=== PATIENT | female | born 1960 | race Caucasian/White ===

== ENCOUNTER 2017-01-28 12:04 | Emergency (ER) | payer MEDICAID ==
[2017-01-28] MEDS ORDERED: TYLENOL ONE (13:15)
[2017-01-28] MEDS ORDERED: TYLENOL PO ONE (13:16)
[2017-01-28] MEDS ORDERED: MOTRIN PO ONE (14:36)
[2017-01-28] MEDS ORDERED: DUONEB 0.5 MG-3 MG/3 ML SOLN IH ONE (14:37)
[2017-01-28] MEDS ORDERED: NACL ONE (16:42)
[2017-01-28 17:20] VITALS: BP 98/63
--- NOTE | 2017-01-28 17:44 | Cat Scan Report ---
FINAL REPORT EXAM: CT ANGIO CHEST HISTORY: pleuritic chest pain, PE protocol TECHNIQUE: CTA of the chest was performed after the administration of intravenous contrast. Rotating MIP reconstructions were included. 100 cc of Omnipaque 350 intravenous contrast were given. Reconstructions were included in the coronal and sagittal planes. PRIORS: None. FINDINGS: Pulmonary arteries and thoracic aorta: The study is adequate for diagnostic purposes. No central or segmental pulmonary embolism. The thoracic aorta is normal in caliber. Lungs and airways: No pleural effusion. Mild bibasilar atelectasis is seen. Scattered patchy ground-glass opacities are seen throughout the left lung. The airways are patent. No bronchiectasis. No pulmonary nodules or masses. Mediastinum, heart, pericardium: Several scattered small mediastinal lymph nodes are seen. The largest in the left lower peritracheal region measures 9 millimeters in short axis. No cardiac chamber enlargement. No pericardial effusion. Thoracic inlet, chest wall, axilla: No chest wall masses. The visualized portions of the thyroid gland demonstrate no focal lesion. No axillary lymphadenopathy. Upper abdomen: There is a moderate hiatal hernia. The gallbladder is absent. Bones: No acute or chronic osseous finding. IMPRESSION: 1. No central or segmental pulmonary embolism. 2. Scattered ground-glass opacities in the left lung may represent atypical pneumonia. 3. Several mediastinal lymph nodes are likely reactive. 4. Moderate hiatal hernia.
--- NOTE | 2017-01-28 18:06 | Emergency Department Report ---
ED Chest Pain HPI - General Chief Complaint: Upper Respiratory Infection Stated Complaint: CHEST PAIN /THROAT PAIN /FEVER Time Seen by Provider: 01/28/17 13:30 Source: patient Mode of arrival: Ambulatory Limitations: No Limitations - History of Present Illness Initial Comments: 57-year-old female past medical history smoker, DMT2 presents with complaint of one week of persistent cough and chest discomfort anterior worse when she takes deep breath, mild palpitations. Patient states that she is trying to quit smoking but is still currently smoking. Denies any headache no dizziness no nausea no vomiting, is complaining of persistent cough. He shouldn't was in the emergency room last night had chest x-ray EKG and labs but eloped from the ED before she was seen by provider. Patient is awake alert and oriented 3 his coughing appears uncomfortable but not in any distress otherwise. Onset/Timin -: week(s) Onset: during rest Pain Location: other (pleuritic) Severity: moderate Severity scale (0 -10): 5 - Related Data Home Medications Medication Instructions Recorded Confirmed Last Taken Lisinopril [Zestril] 10 mg PO QDAY 04/27/14 05/24/15 04/26/14 22:00 Quetiapine Fumarate [Seroquel XR] 400 mg PO QDAY 04/27/14 05/24/15 04/27/14 Sertraline [Zoloft] 50 mg PO DAILY 04/27/14 05/24/15 04/26/14 22:00 Previous Rx's Medication Instructions Recorded Last Taken Type Acetaminophen/Codeine [Tylenol #3] 1 tab PO Q6H PRN #12 tab 05/25/15 Unknown Rx Ibuprofen [Motrin] 800 mg PO Q8H PRN #15 tablet 05/25/15 Unknown Rx ALBUTEROL Inhaler [ProAir HFA 2 puff IH QID PRN #1 inhalation 01/28/17 Unknown Rx Inhaler] Doxycycline [Vibramycin CAP] 100 mg PO Q12HR #20 capsule 01/28/17 Unknown Rx Ibuprofen [Motrin] 600 mg PO Q8H PRN #25 tablet 01/28/17 Unknown Rx Levofloxacin [Levaquin] 750 mg PO QDAY #5 tablet 01/28/17 Unknown Rx Allergies Allergy/AdvReac Type Severity Reaction Status Date / Time No Known Allergies Allergy Verified 04/27/14 20:19 YOU score - You Score Age > 65: (0) No Aspirin use within the Past 7 Days: (0) No 3 or more CAD Risk Factors: (0) No 2 or more Angina events in past 24 hrs: (0) No Known CAD with more than 50% Stenosis: (0) No Elevated Cardiac Markers: (0) No ST Deviation Greater than 0.5mm: (0) No YOU Score: 0 ED Review of Systems ROS: Stated complaint: CHEST PAIN /THROAT PAIN /FEVER Other details as noted in HPI Constitutional: chills, fever Eyes: denies: eye pain, eye discharge, vision change ENT: denies: ear pain, throat pain Respiratory: cough Cardiovascular: chest pain. denies: palpitations Endocrine: no symptoms reported Gastrointestinal: denies: abdominal pain, nausea, diarrhea Genitourinary: denies: urgency, dysuria, discharge Musculoskeletal: denies: back pain, joint swelling, arthralgia Skin: denies: rash, lesions Neurological: denies: headache, weakness, paresthesias Psychiatric: denies: anxiety, depression Hematological/Lymphatic: denies: easy bleeding, easy bruising ED Past Medical Hx - Past Medical History Previous Medical History?: Yes Hx Hypertension: Yes Hx Diabetes: Yes Additional medical history: hypoglycemia, mvp - Surgical History Past Surgical History?: Yes Hx Cholecystectomy: Yes Additional Surgical History: csection x 3 - Social History Smoking Status: Current Every Day Smoker Substance Use Type: Alcohol, Prescribed - Medications Home Medications: Home Medications Medication Instructions Recorded Confirmed Last Taken Type Lisinopril [Zestril] 10 mg PO QDAY 04/27/14 05/24/15 04/26/14 22:00 History Quetiapine Fumarate [Seroquel XR] 400 mg PO QDAY 04/27/14 05/24/15 04/27/14 History Sertraline [Zoloft] 50 mg PO DAILY 04/27/14 05/24/15 04/26/14 22:00 History Acetaminophen/Codeine [Tylenol #3] 1 tab PO Q6H PRN #12 tab 05/25/15 Unknown Rx Ibuprofen [Motrin] 800 mg PO Q8H PRN #15 tablet 05/25/15 Unknown Rx ALBUTEROL Inhaler [ProAir HFA 2 puff IH QID PRN #1 inhalation 01/28/17 Unknown Rx Inhaler] Doxycycline [Vibramycin CAP] 100 mg PO Q12HR #20 capsule 01/28/17 Unknown Rx Ibuprofen [Motrin] 600 mg PO Q8H PRN #25 tablet 01/28/17 Unknown Rx Levofloxacin [Levaquin] 750 mg PO QDAY #5 tablet 01/28/17 Unknown Rx ED Physical Exam - General Limitations: No Limitations General appearance: alert, in no apparent distress - Head Head exam: Present: atraumatic, normocephalic - Eye Eye exam: Present: normal appearance - ENT ENT exam: Present: mucous membranes moist - Neck Neck exam: Present: normal inspection - Respiratory Respiratory exam: Present: rhonchi (slight rhonchi left lung field). Absent: respiratory distress - Cardiovascular Cardiovascular Exam: Present: regular rate, normal rhythm. Absent: systolic murmur, diastolic murmur, rubs, gallop - GI/Abdominal GI/Abdominal exam: Present: soft, normal bowel sounds - Extremities Exam Extremities exam: Present: normal inspection - Back Exam Back exam: Present: normal inspection - Neurological Exam Neurological exam: Present: alert, oriented X3 - Psychiatric Psychiatric exam: Present: normal affect, normal mood - Skin Skin exam: Present: warm, dry, intact, normal color. Absent: rash ED Course Vital Signs 01/28/17 01/28/17 01/28/17 12:21 14:57 14:58 Temperature 100.3 F H Pulse Rate 114 H Pulse Rate [ 87 85 Anterior Bilateral Throughout] Respiratory 22 Rate Respiratory 17 18 Rate [Anterior Bilateral Throughout] Blood Pressure 113/81 Blood Pressure [Left] O2 Sat by Pulse 97 Oximetry 01/28/17 17:20 Temperature 98.3 F Pulse Rate 93 H Pulse Rate [ Anterior Bilateral Throughout] Respiratory 18 Rate Respiratory Rate [Anterior Bilateral Throughout] Blood Pressure Blood Pressure 98/63 [Left] O2 Sat by Pulse 95 Oximetry ED Medical Decision Making - Medical Decision Making A/P: atypical pneumonia 1- case and results d/w Dr. Peter 2- will cover pt empirically with levaquin and doxycycline as per Dr. Peter 3-PSI/PORT score is 58 pointsRisk Class II, 0.6-0.9% mortality. Outpatient treatment reasonable, barring other factors affecting care. 4- CT rules out PE, no PE on CT 5- I referred pt to PMD, strcit instructions to return if she cannot tolerate PO or if she has persistent fever and chills despite ABX use Critical care attestation.: If time is entered above; I have spent that time in minutes in the direct care of this critically ill patient, excluding procedure time. ED Disposition Clinical Impression: Cough Disposition: DISCHARGED TO HOME OR SELFCARE Is pt being admited?: No Does the pt Need Aspirin: No Condition: Stable Instructions: Community-acquired Pneumonia (ED) Prescriptions: ALBUTEROL Inhaler [ProAir HFA Inhaler] 2 puff IH QID PRN #1 inhalation PRN Reason: Shortness Of Breath Doxycycline [Vibramycin CAP] 100 mg PO Q12HR #20 capsule Ibuprofen [Motrin] 600 mg PO Q8H PRN #25 tablet PRN Reason: Fever Levofloxacin [Levaquin] 750 mg PO QDAY #5 tablet Referrals: SWETA WOODSON MD [Staff Physician] - 3-5 Days [facility] [Outside] - 3-5 Days Forms: Accompanied Note, Work/School Release Form(ED) Time of Disposition: 19:02
[2017-01-28] MEDS ORDERED: NACL 0.9% 1000 ML 1,000 ML IV ONE (18:10)
[2017-01-28] MEDS ORDERED: LEVAQUIN PO ONE (18:11)
== END 2017-01-28 19:40 | disposition home or self-care (01) ==
LOC: ED 12:04
DX: R05 Cough (principal); I10 Essential (primary) hypertension; E11.9 Type 2 diabetes mellitus without complications; F17.200 Nicotine dependence, unspecified, uncomplicated
CPT/HCPCS: 36415; 71275; 82805; 84484; 85379; 87400; 94640; 96360; 99284; J7030; Q9967

== ENCOUNTER 2017-08-08 02:13 | Emergency (ER) | payer MEDICAID ==
[2017-08-08 03:02] VITALS: BP 155/102
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
[2017-08-08 03:30] LABS: Urine Drugs of Abuse Note Disclamer
[2017-08-08 03:58] LABS: Bilirubin,Urine NEG (Negative); Blood,Urine SM (Negative); Ketones,Urine NEG (Negative); Leukocyte Esterase,Urine NEG (Negative); Nitrite,Urine NEG (Negative); Protein,Urine <15 mg/dL mg/dL (Negative); Urobilinogen,Urine < 2.0 mg/dL (<2.0)
[2017-08-08 05:13] LABS: BUN/Creatinine Ratio 18.57; Blood Urea Nitrogen 13 mg/dL (7-17); Calcium 9.2 mg/dL (8.4-10.2); Carbon Dioxide 26 mmol/L (22-30); Glucose 109 mg/dL (65-100)
[2017-08-08 05:14] LABS: Alanine Aminotransferase 17 units/L (7-56); Albumin 3.8 g/dL (3.9-5); Albumin/Globulin Ratio 1.5 %; Alkaline Phosphatase 85 units/L (35-129); Anion Gap 15 mmol/L; Chloride 103.2 mmol/L (98-107); Potassium 3.8 mmol/L (3.6-5.0); Sodium 140 mmol/L (137-145); Total Protein 6.4 g/dL (6.3-8.2)
[2017-08-08 05:24] LABS: Basophils % (Auto) 0.8 % (0.0-1.8); Eosinophils % (Auto) 2.5 % (0.0-4.3); Hematocrit 38.3 % (30.3-42.9); Hemoglobin 13.1 gm/dl (10.1-14.3); Mean Corpuscular HGB Conc 34 % (30-34); Mean Corpuscular Hemoglobin 31 pg (28-32); Mean Corpuscular Volume 91 fl (79-97); Platelet Count 250 K/mm3 (140-440); Red Blood Count 4.22 M/mm3 (3.65-5.03); Red Cell Distribution Width 14.5 % (13.2-15.2); White Blood Count 8.8 K/mm3 (4.5-11.0)
--- NOTE | 2017-08-08 07:42 | Emergency Department Report ---
Blank Doc - Documentation Documentation: I spoke with Dr. Morgan who says that his plan for this patient was for the patient to be assessed by the mental health counselor but that if they did not feel that the patient required inpatient psychiatric admission or to be made a 1013, then he had no intention of the patient being placed for inpatient psychiatric admission and has requested discharge paperwork be done for this patient.
== END 2017-08-08 08:01 | disposition home or self-care (01) ==
LOC: ED 02:13
DX: F32.9 Major depressive disorder, single episode, unspecified (principal); I10 Essential (primary) hypertension; E11.9 Type 2 diabetes mellitus without complications
CPT/HCPCS: 80053; 80307; 81001; 84703; 85025; 99284; G0480; 80320